=== PATIENT | female | born 1990 | race Caucasian/White ===

== ENCOUNTER 2022-05-26 07:42 | Day surgery (SDC) | payer MEDICAID ==
[~2022-05-26] VITALS: Ht 162.6 cm; Wt 83.9 kg
[2022-05-26] MEDS ORDERED: MEPERIDINE 100 MG INJ. 100 MG/ML VIAL ONE (09:07)
[2022-05-26] MEDS ORDERED: MIDAZOLAM HCL 5 MG/5 ML VIAL ONE (09:07)
[2022-05-26] MEDS ORDERED: DIPHENHYDRAMINE INJ 50 MG/ML VIAL ONE (09:08)
[2022-05-26 09:49] LABS: HCG,QUAL RESULT NEGATIVE (NEGATIVE)
[2022-05-26 12:20] VITALS: BP_SYST 120
== END 2022-05-26 10:55 | disposition home or self-care (01) ==
LOC: SDS 07:42 → SMU 08:32 → SDS 10:55
PROVIDERS: ATTEND Internal Medicine Gastroenterology
DX: K21.00 Gastro-esophageal reflux disease with esophagitis, without bleeding (principal); K31.89 Other diseases of stomach and duodenum; K29.50 Unspecified chronic gastritis without bleeding; M79.7 Fibromyalgia; E78.00 Pure hypercholesterolemia, unspecified; Z88.1 Allergy status to other antibiotic agents; Z88.8 Allergy status to other drugs, medicaments and biological substances; Z98.84 Bariatric surgery status; Z79.899 Other long term (current) drug therapy; Z20.822 Contact with and (suspected) exposure to COVID-19
CPT/HCPCS: 36415 ×2; 43245; 84703; 43239; 88305; 88312; 88313; 99152; 87426; U0003; G0378; J1200; J2250; J2175; C1769